=== PATIENT | male | born 1965 | race Caucasian/White ===

== ENCOUNTER 2021-04-15 09:06 | Outpatient (CLI) | payer BC, SELFPAY ==
--- NOTE | 2021-04-15 | ECG_ITS ---
Measurements Intervals [place] Rate: 78 P: 62 W[place]: 160 QRS: 63 QRSD: 102 T: 45 QT: 384 QTc: 439 Interpretive Statements SINUS RHYTHM POSSIBLE LEFT ATRIAL ENLARGEMENT INCOMPLETE RIGHT BUNDLE BRANCH BLOCK BORDERLINE ECG Electronically Signed On 04-15-2021 9:35:29 CDT by Gilberto Caal D.O.
== END 2021-04-15 09:07 | disposition home or self-care (01) ==
LOC: ANHCARD 09:10
PROVIDERS: Visit Provider Podiatrist Foot & Ankle Surgery
DX: R03.0 Elevated blood-pressure reading, without diagnosis of hypertension (principal); I45.10 Unspecified right bundle-branch block
CPT/HCPCS: 93005